=== PATIENT | female | born 1970 | race Caucasian/White ===

== ENCOUNTER 2018-12-23 12:49 | Outpatient (CLI) | payer BC ==
--- NOTE | 2018-12-24 14:58 | XRAY Report ---
Reason: RIGHT ANKLE PAIN Procedure Date: 12/23/2018 Accession Number: [id number] / [id number] Procedure: WCP - Ankle 3 View RT CPT Code: FULL RESULT: EXAM: RIGHT ANKLE RADIOGRAPHY EXAM DATE: 12/23/2018 11:09 AM. CLINICAL HISTORY: Follow-up possible avulsion fracture, dorsal neck of talus, on outside films obtained after an injury 11/28/2018. COMPARISON: None. TECHNIQUE: 3 views. FINDINGS: Bones: Plantar calcaneal enthesophyte. Small smooth 2 mm calcification dorsal to the distal talus. No other bony abnormalities. Joints: Normal. No effusion. No subluxations. The ankle mortise is normally aligned. Soft Tissues: Unremarkable. IMPRESSION: Small smooth 2 mm calcification dorsal to the distal talus, likely due to remote injury. [facility]
== END 2018-12-23 23:59 | disposition home or self-care (01) ==
LOC: DI.WCP 12:49 → EDSTATUS 13:39 → DI.WCP 23:59
PROVIDERS: ATTEND Family Medicine
DX: M25.871 Other specified joint disorders, right ankle and foot (principal)

== ENCOUNTER 2020-11-13 08:00 | Outpatient (CLI) | payer BC ==
[2020-11-13 18:15] LABS: BASOPHILS % (AUTO) 0.3 %; EOSINOPHILS % (AUTO) 0.3 %; HCT - HEMATOCRIT 41.6 % (37.0-47.0); HGB - HEMOGLOBIN 13.7 g/dL (12.0-16.0); LYMPHOCYTES # (AUTO) 0.8 10^3/uL (1.5-3.5); LYMPHOCYTES % (AUTO) 10.7 %; MEAN CORPUSCULAR HEMOGLOBIN 32.3 pg (27.0-31.0); MEAN CORPUSCULAR HGB CONC 32.9 g/dL (32.0-36.0); MEAN CORPUSCULAR VOLUME 98.1 fL (81.0-99.0); MEAN PLATELET VOLUME 9.3 fL (7.9-10.8); MONOCYTES # (AUTO) 0.3 10^3/uL (0.0-1.0); MONOCYTES % (AUTO) 4.3 %; NEUTROPHILS # (AUTO) 6.1 10^3/uL (1.5-6.6); NEUTROPHILS % (AUTO) 83.8 %; PLT - PLATELET COUNT 351 10^3/uL (130-450); RED BLOOD COUNT 4.24 10^6/uL (4.20-5.40); RED CELL DISTRIBUTION WIDTH 13.3 % (12.0-15.0); WHITE BLOOD COUNT 7.2 x10^3/uL (4.8-10.8)
[2020-11-13 18:39] LABS: ALBUMIN 4.1 g/dL (3.2-5.5); ALBUMIN/GLOBULIN RATIO 1.1 (1.0-2.2); ALKALINE PHOSPHATASE 45 IU/L (42-121); ALT ALANINE AMINOTRANSFERASE 12 IU/L (10-60); AST ASPARTATE AMINOTRANSFERASE 12 IU/L (10-42); BILIRUBIN,TOTAL 0.5 mg/dL (0.2-1.0); BUN - BLOOD UREA NITROGEN 17 mg/dL (6-20); CALCIUM 9.3 mg/dL (8.5-10.3); CARBON DIOXIDE - CO2 26 mmol/L (21-32); CHLORIDE 98 mmol/L (101-111); CHOL/HDL RATIO 2.8 (<4.4); CHOLESTEROL 260 mg/dL; CREATININE 0.9 mg/dL (0.4-1.0); GFR - MDRD 66 (>89); GLUCOSE 115 mg/dL (70-100); HDL CHOLESTEROL 92 mg/dL; LDL CHOLESTEROL,CALCULATED 147 mg/dL; LDL/HDL RATIO 1.6 (<4.4); POTASSIUM 4.2 mmol/L (3.5-5.0); SODIUM 136 mmol/L (135-145); TOTAL PROTEIN 7.7 g/dL (6.7-8.2); TRIGLYCERIDES 103 mg/dL; VLDL CHOLESTEROL 21 mg/dL
[2020-11-13 18:50] LABS: THYROID STIMULATING HORMONE 0.56 uIU/mL (0.34-5.60)
[2020-11-13 20:23] LABS: ESTIMATED AVERAGE GLUCOSE 108 mg/dL (70-100); HEMOGLOBIN A1c% 5.4 % (4.27-6.07)
== END 2020-11-13 23:59 | disposition home or self-care (01) ==
LOC: LAB.WCP 08:00
PROVIDERS: ATTEND Family Medicine
DX: Z00.00 Encounter for general adult medical examination without abnormal findings (principal)
CPT/HCPCS: 36415; 80053; 80061; 83036; 83721; 84443; 85025

== ENCOUNTER 2023-11-26 11:27 | Outpatient (CLI) | payer BC ==
--- NOTE | 2023-11-27 16:24 | XRAY Report ---
PROCEDURE: Ankle 3+V RT INDICATIONS: SPRAIN OF UNSPECIFIED LIGAMENT OF RIGHT ANKLE TECHNIQUE: 3 views of the ankle were acquired. COMPARISON: 12/23/2018 FINDINGS: Bones: Plantar enthesopathy. Small bone fragment again seen dorsal to the talus. No acute displaced f racture or dislocation. Foot fracture findings are separately dictated. Soft tissues: Diffuse soft tissue swelling. IMPRESSION: Foot fracture findings are separately dictated. No acute displaced fracture or dislocation of the ank le. There is soft tissue swelling. Reviewed by: Harpreet Harvey MD on 11/27/2023 4:23 PM PDT Approved by: Harpreet Harvey MD on 11/27/2023 4:23 PM PDT Station ID: [id number]
--- NOTE | 2023-11-27 16:25 | XRAY Report ---
PROCEDURE: Foot 1-2V RT INDICATIONS: PAIN IN RIGHT FOOT TECHNIQUE: 3 views of the foot were acquired. COMPARISON: 12/23/2018 FINDINGS: Bones: Mildly displaced fracture of the fifth metatarsal base. Minimal scattered degenerative changes . Plantar enthesopathy. A bone fragment is again seen dorsal to the talus. Soft tissues: No suspicious calcifications. IMPRESSION: Mildly displaced fifth metatarsal base fracture. Reviewed by: Harpreet Harvey MD on 11/27/2023 4:24 PM PDT Approved by: Harpreet Harvey MD on 11/27/2023 4:24 PM PDT Station ID: [id number]
== END 2023-11-26 23:59 | disposition home or self-care (01) ==
LOC: DI.N 11:27
PROVIDERS: ATTEND Physician Assistant Medical
DX: S92.351A Displaced fracture of fifth metatarsal bone, right foot, initial encounter for closed fracture (principal); M19.071 Primary osteoarthritis, right ankle and foot

== ENCOUNTER 2023-12-07 09:28 | Outpatient (CLI) | payer BC ==
--- NOTE | 2023-12-07 10:33 | XRAY Report ---
PROCEDURE: Ankle 3+V RT INDICATIONS: SPRAIN OF UNSPECIFIED LIGAMENT OF RIGHT ANKLE TECHNIQUE: 3 views of the ankle were acquired. COMPARISON: None. FINDINGS: Bones: No fractures or dislocations. Ankle mortise is normally aligned. No suspicious bony lesions . Small plantar calcaneal enthesophyte. Soft tissues: No tibiotalar joint effusion. Achilles tendon appears normal. IMPRESSION: No acute bony abnormality. Reviewed by: Aline Kent MD, PhD on 12/07/2023 10:32 AM PDT Approved by: Aline Kent MD, PhD on 12/07/2023 10:32 AM PDT Station ID: [id number]
--- NOTE | 2023-12-08 09:54 | XRAY Report ---
PROCEDURE: Foot 3+V RT (Weight Bearing) INDICATIONS: NONDISPLACED FX OF FIFTH METATARSAL BONE TECHNIQUE: 3 views of the foot were acquired. COMPARISON: 11/26/2023 FINDINGS: Bones: Mildly displaced healing fracture of the fifth metatarsal base again seen. Mild background degenerative changes. Calcaneal enthesopathy. Bone fragment again seen dorsal to the talonavicular region. Soft tissues: Indeterminate small densities seen dorsal to the talus on lateral view. IMPRESSION: Healing fifth metatarsal base fracture. Small densities seen dorsal to the talus on lateral view, exact etiology indeterminate. Background mild enthesopathy and degenerative changes. Reviewed by: Harpreet Harvey MD on 12/08/2023 9:53 AM PDT Approved by: Harpreet Harvey MD on 12/08/2023 9:53 AM PDT Station ID: [id number]
== END 2023-12-07 09:29 | disposition home or self-care (01) ==
LOC: DI.N 09:28
PROVIDERS: ATTEND Orthopaedic Surgery
DX: S92.351D Displaced fracture of fifth metatarsal bone, right foot, subsequent encounter for fracture with routine healing (principal); M19.071 Primary osteoarthritis, right ankle and foot; M77.31 Calcaneal spur, right foot